=== PATIENT | male | born 1930 | race Caucasian/White ===

== ENCOUNTER 2021-09-09 06:07 | Day surgery (SDC) | payer MEDICARE, OTHER ==
[2021-09-08 14:58] LABS: BASOPHILS % (AUTO) 0.4 % (0-1); EOSINOPHILS # (AUTO) 0.1 X10'3 (0-0.9); EOSINOPHILS % (AUTO) 1.8 % (0-6); HEMOGLOBIN 13.4 g/dl (14.0-17.9); LYMPHOCYTES # (AUTO) 1.2 X10'3 (1.1-4.8); LYMPHOCYTES % (AUTO) 17.3 % (21-51); MEAN CORPUSCULAR HEMOGLOBIN 31.9 PG (27.0-31.0); MEAN CORPUSCULAR HGB CONC 34.4 g/dL (33.0-36.5); MEAN CORPUSCULAR VOLUME 92.8 FL (78-98); MEAN PLATELET VOLUME 6.7 FL (7.4-10.4); MONOCYTES # (AUTO) 0.5 X10'3 (0-0.9); MONOCYTES % (AUTO) 6.6 % (2-12); NEUTROPHILS # (AUTO) 5.1 X10'3 (1.8-7.7); NEUTROPHILS % (AUTO) 73.9 % (42-75); PLATELET COUNT 154 X10'3 (140-440); RED BLOOD COUNT 4.21 X10'6 (4.70-6.10); RED CELL DISTRIBUTION WIDTH 13.7 % (11.5-14.5); WHITE BLOOD COUNT 6.9 X10'3 (4.5-11.0)
[2021-09-08 15:04] LABS: ALBUMIN 3.4 G/DL (3.4-5.0); ANION GAP 6 (8-16); BLOOD UREA NITROGEN 12 MG/DL (7-18); CALCIUM 8.7 MG/DL (8.5-10.1); CHLORIDE 101 MMOL/L (99-107); CREATININE 0.92 MG/DL (0.60-1.10); GLUCOSE 137 MG/DL (70-104); POTASSIUM 4.4 MMOL/L (3.5-5.1); SODIUM 135 MMOL/L (135-145); eGFR 77 ML/MIN
[2021-09-09] VITALS (10 sets, daily range): BP systolic 98–139; BP diastolic 46–62
[~2021-09-09] VITALS: Ht 188 cm; Wt 86.1 kg
[~2021-09-09 06:07] MED LIST: ASPI-1264 PO; ATOR20TA66 PO; CA C1TAB69 PO; CYAN100019 PO; FINA5TAB11 PO; FLO0.4C PO; LOSA100T57 PO; METO50TA7 PO; MULT-342 PO; NOR5T PO; OMEG1CAP21 PO; VITAMIN B 6 PO
[2021-09-09] MEDS ORDERED: normal saline 1000ml 1,000 ML IV SCH (06:30)
[2021-09-09] MEDS ORDERED: FURO20TA4 PO (07:15)
[2021-09-09] MEDS ORDERED: WARF6TAB49 PO (07:15)
[2021-09-09] MEDS ORDERED: ASPI-1071 PO (07:15)
[2021-09-09] MEDS ORDERED: CLINDAMYCIN/D5W 900mg/50ml 50 ML IV ONE (07:27)
[2021-09-09] MEDS ORDERED: clindamycin phosphate 150mg/ml inj. ONE (07:28)
[2021-09-09] MEDS ORDERED: fentaNYL/PF 50MCG/1 ML 2ML syringe ONE (07:28)
[2021-09-09] MEDS ORDERED: midazolam 1 mg/ML 2ml injection ONE ×2 (07:28→08:34)
[2021-09-09] MEDS ORDERED: LIDOcaine 1% w/EPI 1:100,000 30ml vial (MDV) ONE (07:29)
[2021-09-09] MEDS ORDERED: vancomycin 1,000mg inj ONE (07:40)
[2021-09-09] MEDS ORDERED: HYDROcodone/acetaminophen 10/325mg tab PO PRN (09:50)
[2021-09-09] MEDS ORDERED: HYDROcodone/acetaminophen 5mg/325mg tablet PO PRN (09:50)
[2021-09-09] MEDS ORDERED: vancomycin/NS 1 GM ADD-VANTAGE 250 ML IV ONE (10:30)
== END 2021-09-09 13:50 | disposition home or self-care (01) ==
LOC: SSTAY O 06:07
PROVIDERS: ATTEND Internal Medicine Cardiovascular Disease
DX: Z45.02 Encounter for adjustment and management of automatic implantable cardiac defibrillator (principal); I25.10 Atherosclerotic heart disease of native coronary artery without angina pectoris; I50.9 Heart failure, unspecified; I42.9 Cardiomyopathy, unspecified; Z95.1 Presence of aortocoronary bypass graft; Z79.01 Long term (current) use of anticoagulants; Z79.899 Other long term (current) drug therapy; Z79.82 Long term (current) use of aspirin
CPT/HCPCS: 33264; 36415; 80048; 85025; 85610; 93005; 99152; 99153; C1882; J2250; J3010; J3370; J3490; J7030; A4620; A6258; A6449